=== PATIENT | male | born 1960 | race Caucasian/White ===

== ENCOUNTER 2019-11-23 08:01 | Emergency (ER) | payer OTHER, SELFPAY ==
--- NOTE | 2019-11-23 08:11 | ED.EAR ---
HPI - Ear Problem General Chief complaint: Ear Stated complaint: ear pain Time Seen by Provider: 11/23/19 08:11 Source: patient and RN notes reviewed History of Present Illness HPI Narrative: Patient is a 59-year-old male that presents the urgent care with complaints of bilateral ear wax. Patient states that the right ear has been bothering him since approximately last week in the left ear does not bother him as much . Patient states that he has had decreased hearing due to the earwax. Patient states that since last Tuesday he is put peroxide, warm water, vinegar and a mixture of a home remedy into his right ear. Patient also has a history of a ruptured eardrum, he believes to the left ear when he was in the . Patient does wear earplugs for work and believes that makes his condition worse. No other acute complaints. No acute distress noted. Patient read the plan of care. Related Data Home Medications Medication Instructions Recorded Confirmed metoprolol succinate 25 mg PO DAILY 11/23/19 11/23/19 rosuvastatin 20 mg PO DAILY 11/23/19 11/23/19 Allergies Allergy/AdvReac Type Severity Reaction Status Date / Time Penicillins Allergy Rash Verified 11/23/19 08:24 Review of Systems Review of Systems: Narrative: CONSTITUTIONAL: Denies fever, chills, or sweats. EYES: Denies visual changes, redness, or discharge. ENT: Reports of bilateral ear wax with decreased hearing CARDIOVASCULAR: Denies chest pain, palpitations, or edema. RESPIRATORY: Denies cough or dyspnea. GASTROINTESTINAL: Denies abdominal pain, nausea, vomiting, or diarrhea. GENITOURINARY: Denies dysuria or hematuria. SKIN: Denies rash or itching. MUSCULOSKELETAL: Denies back pain, joint pain, or myalgia. NEUROLOGIC: Denies headache, numbness, or weakness. All other systems reviewed are negative, except as documented in HPI. PMFSH Comments At the time of my signature, I reviewed and agree with the nursing past medical, surgical, social, and family history. There is no relevant family history pertinent to the patient complaint. Exam Narrative: Exam Narrative: GENERAL: This is a well-nourished, well-developed patient, in no apparent distress. HEAD: normocephalic, atraumatic. EYES: PERRL. Sclera clear/white. Vision is grossly intact. EARS: External ears normal, auditory canals clear and without drainage, unable to visualize bilateral TMs due to cerumen impaction hearing grossly intact. NOSE: External nose normal with no obvious nasal discharge THROAT: Mucous membranes moist NECK: Neck supple SKIN: warm, intact with no suspicious lesions or rash, good texture and turgor. NEURO: awake, alert, and oriented to person, place and time. There were no obvious focal neurologic abnormalities. EXTREMITIES: No clubbing, cyanosis, or edema. Course Vital Signs Vital signs: Vital Signs Temperature 98.8 F 11/23/19 08:15 Pulse Rate 61 11/23/19 08:15 Respiratory Rate 18 11/23/19 08:15 Blood Pressure 135/82 11/23/19 08:15 Pulse Oximetry 100 11/23/19 08:15 Temperature 98.8 F 11/23/19 08:15 Pulse Rate 61 11/23/19 08:15 Respiratory Rate 18 11/23/19 08:15 Blood Pressure 135/82 11/23/19 08:15 Pulse Oximetry 100 11/23/19 08:15 Reviewed Procedures Ear Wax Removal Both Ears: Cerumenolytic Used: other (Peroxide and warm water) Results: Re-examined: cerumen removed completely (To left ear) and some cerumen remains (To right ear) TM Examination: TM(s) intact, normal appearance (Left ) Patient Tolerated Procedure: well and no complications Additional Comments: Peroxide and warm water used with ear irrigation as well as lighted curette. Successful to the left ear and some cerumen remains to the right. Left TM within normal limits. Still unable to visualize right TM. Canals without inflammation or bleeding. Patient tolerated well. NO foreign body with the exception of cerumen. Medical Decision Making MDM
[2019-11-23 08:15] VITALS: BP 135/82; PULSE 61; RESP 18; TEMP 37.1; O2SAT 100
== END 2019-11-23 08:50 | disposition home or self-care (01) ==
PROVIDERS: Emergency Provider Nurse Practitioner Family; PCP Nurse Practitioner Family
DX: H61.23 Impacted cerumen, bilateral (principal); I10 Essential (primary) hypertension; Z95.5 Presence of coronary angioplasty implant and graft
CPT/HCPCS: 69210; 99203; G0463